=== PATIENT | female | born 1960 | race Caucasian/White ===

== ENCOUNTER → 2017-05-29 | Outpatient (CLI) | payer OTHER ==
--- NOTE | 2017-05-29 10:36 | DIAGNOSTIC IMAGING REPORT ---
Study: Fusion CT sinuses. HISTORY: Chronic sinusitis. FINDINGS: Extensive mucosal thickening and polypoid change throughout all major sinuses as well as nasal canal. Moderate mucosal thickening of the sphenoid sinuses. Considerable mucosal thickening of the right as well as left maxillary sinus with soft tissue occlusion of the ostiomeatal units bilaterally. Complete opacification of the nasal airways bilaterally presumably with extensive polypoid change. Considerable mucosal thickening of the frontal sinuses. The orbital margins are intact. No true bony destructive process. IMPRESSION: 1. Extensive mucosal thickening and polypoid change throughout all major sinuses. 2. Complete soft tissue occlusion of the ostiomeatal units bilaterally. 3. Complete/near-complete occlusion of the nasal canals bilaterally secondary to hyperplastic polypoid change 4. The orbital margins remain intact. Electronically signed by: Marito Candelaria M.D. 05/29/2017 10:35 AM Dictated Date/Time: 05/29/2017 10:31 AM
== END | disposition home or self-care (01) ==
LOC: C.CTS 10:15
DX: J32.9 Chronic sinusitis, unspecified (principal); J34.89 Other specified disorders of nose and nasal sinuses

== ENCOUNTER → 2017-06-01 | Outpatient (CLI) | payer OTHER ==
[2017-06-01 15:38] LABS: BASO % 1.2 %; BASO ABS # 0.11 K/uL (0-0.2); EOS % 15.7 %; EOS ABS # 1.46 K/uL (0-0.5); HEMATOCRIT 40.9 % (37-47); HEMOGLOBIN 14.2 g/dL (12.0-16.0); IG# 0.02 K/uL (0.00-0.02); LYMPH % 32.1 %; LYMPH ABS # 2.99 K/uL (1.2-3.4); MEAN CELL VOLUME 88.9 fL (80-100); MEAN CORPUSCULAR HEMOGLOBIN 30.9 pg (25-34); MEAN CORPUSCULAR HGB CONC 34.7 g/dl (32-36); MEAN PLATELET VOLUME 10.6 fL (7.4-10.4); MONO % 8.8 %; MONO ABS # 0.82 K/uL (0.11-0.59); NEUT ABS # 3.92 K/uL (1.4-6.5); PLATELET COUNT 292 K/uL (130-400); RED CELL DISTRIBUTION WIDTH CV 12.7 % (11.5-14.5); RED CELL DISTRIBUTION WIDTH SD 40.6 fL (36.4-46.3); WHITE BLOOD COUNT 9.32 K/uL (4.8-10.8)
[2017-06-01 15:54] LABS: PTT PATIENT 26.2 SECONDS (21.0-31.0)
[2017-06-01 16:07] LABS: POTASSIUM 3.7 mmol/L (3.5-5.1)
== END | disposition home or self-care (01) ==
LOC: C.CPL 14:09
DX: Z01.818 Encounter for other preprocedural examination (principal)

== ENCOUNTER → 2017-06-12 | Day surgery (SDC) | payer OTHER ==
[2017-06-09 11:10] VITALS: Ht 157.5 cm; Wt 90.9 kg
[~2017-06-12] VITALS: Ht 157.5 cm; Wt 90.9 kg
[~2017-06-12] MED LIST: ALUMSUS2 PO; AMOX875T PO; ATROPINE SULFATE 0.1 MG/ML 5ML SYR IV PRN; B CO1TAB7 PO; CEFAZOLIN 2000MG IV PUSH 15 ML IV SCH; CETI10TA84 PO; CITA20TA4 PO; CRS20 PO; DEXAMETHASONE SOD INJ 4 MG/ML VIAL ONE; EpHEDrine SULFATE INJ 50 MG/ML AMP IV PRN; EpINEphrine INJ 1MG/ML AMP 1 MG/ML AMP ONE; FENTANYL CITRATE INJ 50 MCG/1 ML 2 ML VIAL IV PRN; FENTANYL CITRATE INJ 50 MCG/1 ML 2 ML VIAL ONE; FLAX100024 PO; GLYCOPYRROLATE INJ 0.2 MG/ML VIAL ONE; HYDROCODONE/ACETAMIN 5/325MG TAB PO PRN; HYDROCORTISONE SOD SUCCINATE 100 MG/2 ML VIAL ONE; LACTATED RINGER'S 1000ML 1,000 ML IV SCH; LANS30CA12 PO; LIDOCAINE 4% MPF SOAK 5 ML = 1 DOSE TOP ONE; LIDOCAINE HCL 2% 2 ML VIAL (20MG/ML) ONE; LIDOCAINE/EPINEPHRINE 1% 20 ML VIAL ONE; MELATAB2 PO; MIDAZOLAM HCL 1 MG/ML 2ML VIAL ONE; NAPR1TAB9 PO; NEOSTIGMINE METHYLSULFATE 5 MG/5 ML SYR ONE; NURSING VERBAL MED ORDER ONE; ONDANSETRON INJ 2 MG/ML 2 ML VIAL IV PRN; ONDANSETRON INJ 2 MG/ML 2 ML VIAL ONE; OXYMETAZOLINE HCL 0.05% NA SPR 15 ML BTL PRN; OXYMETAZOLINE HCL 0.05% NA SPR 15 ML BTL SCH; PRED10PA3 PO; PROPOFOL IV EMULSION 10 MG/ML 20 ML VIAL IV ONE; SCOPOLAMINE 1.5 MG TDSY TD ONE; SYMIN160 INH; TRIAMCINOLONE ACET 40 MG/ML VIAL ONE; VNTHFA/IN INH
--- NOTE | 2017-06-12 09:55 | History & Physical Bridge - [place] ---
H&P Re-Evaluation Bridge Note: I have examined the patient, reviewed the History & Physical and in the interval since the performance of the History & Physical I have noted the following changes of clinical significance: No changes noted
--- NOTE | 2017-06-12 11:49 | [facility] Operative Report ---
Operative Report Operative Date Jun 12, 2017. Pre-Operative Diagnosis Chronic Sinusitis, Nasal Polyps, Allergic Rhinitis, SEPTAL DEVIATION, BILATERAL INFERIOR TURBINATE HYPERTROPHY Post-Operative Diagnosis Same Procedure(s) Performed Bilateral IMAGE-GUIDED REVISION Endoscopic Sinus Surgery, Septoplasty, Bilateral Inferior Turbinate Reduction Surgeon Dr. Storey Director Of Analytical Development Surgeon(s) None Estimated Blood Loss 100 mL Findings SEVERE R>L SINONASAL POLYPOSIS, ANTERIOR SEPTAL PERFORATION, SEVERE RIGHT SEPTAL DEVIATION, R>L INFERIOR TURBINATE HYPERTROPHY, LEFT ARIK BULLOSA Specimens A. Right Nasal Polyp Anesthesia Type General I attest to the content of the Intraoperative Record and any orders documented therein. Any exceptions are noted below.
--- NOTE | 2017-06-12 11:52 | Discharge Instructions ---
Discharge Instructions Date of Service Jun 12, 2017. Admission Reason for Admission: Nasal Polyps,Allergic Rhinitis, Chronic Sinusitis Discharge Discharge Diagnosis / Problem: SAME Discharge Goals Goal(s): Therapeutic intervention Activity Recommendations Activity Limitations: as noted below LIGHT ACTIVITY AND NO NOSE BLOWING FOR 2 WEEKS; NO DRIVING WHILE ON NORCO . Current Hospital Diet Patient's current hospital diet: Discharge Diet Recommended Diet: Regular Diet Procedures Procedures Performed: Bilateral IMAGE-GUIDED REVISION Endoscopic Sinus Surgery, Septoplasty, Bilateral Inferior Turbinate Reduction Pending Studies Studies pending at discharge: no Medical Emergencies . Who to Call and When: Medical Emergencies: If at any time you feel your situation is an emergency, please call 911 immediately. . Non-Emergent Contact Non-Emergency issues call your: Surgeon . . "Provider Documentation" section prepared by Alejo Storey. . VTE Core Measure Inpt VTE Proph given/why not?: SCD's
[2017-06-12 12:47] VITALS: BP 149/84; PULSE 52; TEMP 36.3; O2SAT 99
--- NOTE | 2017-06-12 13:28 | OPERATIVE REPORT ---
DATE OF OPERATION: 06/12/2017 PREOPERATIVE DIAGNOSES: 1. Chronic polypoid rhinosinusitis. 2. Right septal deviation. 3. Anterior septal perforation. 4. Right greater than left inferior turbinate hypertrophy. POSTOPERATIVE DIAGNOSES: 1. Chronic polypoid rhinosinusitis. 2. Right septal deviation. 3. Anterior septal perforation. 4. Right greater than left inferior turbinate hypertrophy. PROCEDURES: Mezmeriztronic fusion image guided bilateral endoscopic sinus surgery consisting of: 1. Endoscopic left beronica bullosa resection. 2. Bilateral revision maxillary antrostomies. 3. Bilateral revision complete ethmoidectomies. 4. Bilateral revision frontal sinusotomies with balloon sinuplasty assistance on the left-hand side. 5. Revision bilateral sphenoidotomies. 6. Septoplasty. 7. Revision bilateral inferior turbinate outfracture and turbinoplasty. SURGEON: Alejo Storey MD ANESTHESIA: General endotracheal. ESTIMATED BLOOD LOSS: 100 mL. FINDINGS: 1. Right greater than left sinonasal polyposis. 2. Anterior septal perforation, measuring approximately 1 cm. 3. Severe right nasal septal deviation. 4. Right greater than left inferior turbinate hypertrophy. 5. Extensive sinonasal polyposis primarily within the ethmoid and frontal sinuses. 6. Purulence within the left maxillary sinus. SPECIMENS: Right nasal polyp for further pathologic assessment. COMPLICATIONS: None. INDICATIONS FOR THE PROCEDURE: The patient is a 57-year-old female who has a history of chronic polypoid rhinosinusitis, who has undergone bilateral endoscopic sinus surgery, septoplasty, and inferior turbinate reduction by Dr. Jeffrey Pack in the [place] area. This was done in September of 2015. The patient quickly developed worsening symptomatology and complained of olfactory loss after the procedure. She has a history of allergic rhinitis and has had previous allergy testing. The patient was treated with antibiotics and steroids and a posttreatment fusion CT scan of the sinuses revealed pansinusitis, the above-mentioned septal perforation, severe right nasal septal deviation, and right greater than left inferior turbinate hypertrophy. She presents for the above-mentioned procedures on an outpatient elective basis. DESCRIPTION OF PROCEDURE: After informed consent had been obtained from the patient, the patient was wheeled to the operating room and placed on the operating table in the supine position. Monitors were placed. After induction of general endotracheal anesthesia, the patient was prepped in the usual fashion for endoscopic sinus surgery. Lidocaine and epinephrine pledgets were placed in the bilateral nasal cavities and pressure applied. After allowing adequate time for anesthesia and vasoconstriction, the left-sided pledget was removed and the patient was found to have a preexisting anterior septal perforation that measured approximately 1 cm in greatest dimension. It was noted that she had a large left middle turbinate and it appeared on the CT scan that she had a beronica bullosa, which was not resected. She had pus within the middle meatus. The left middle turbinate and lateral nasal wall were injected with 1% lidocaine with 1:100,000 epinephrine. A freer elevator was used to medialize the middle turbinate and the lidocaine and epinephrine pledget was then placed into the left middle meatus after purulence was suctioned from it. On the right hand side, there was severe right septal deviation. It appeared that there was prior resection of the right middle turbinate and there was diffuse polyposis filling the entire nasal cavity and ethmoid cavity on the right hand side. This polyposis was injected with 1% lidocaine with 1:100,000 epinephrine. Lidocaine and epinephrine pledget was then placed into the right nasal cavity/middle meatus. The left-sided pledget was removed. A sickle knife was used to incise the middle turbinate longitudinally and the lateral half of the middle turbinate was removed using straight Omar-Cut forceps and powered instrumentation and an endoscopic left beronica bullosa resection was performed. Purulence was seen emanating from the patient's previous maxillary antrostomy, which was found to be quite small. This was enlarged anteriorly, inferiorly, and posteriorly using backbiting forceps and powered instrumentation. A revision complete ethmoidectomy was then performed using powered instrumentation. The patient's previous operative note stated that she had a complete ethmoidectomy, but this is quite doubtful as it appeared as if only the ethmoid bulla was previously entered. Care was taken to exonerate all the ethmoid air cells and make it one complete cavity. There was diffuse polyposis within most of the air cells of the ethmoid sinus. Using a transnasal approach, the left sphenoid sinus ostium was identified and this was enlarged medially and inferiorly using powered instrumentation. Using a curved frontal sinus suction, the left frontal sinus was cannulated. The suction was removed and a #6 frontal sinus balloon was inserted and inflated to 12 atmospheres of pressure at 3 different locations to dilate the frontal recess tract. Powered instrumentation was then used to remove polypoid tissue that was blocking the left frontal recess. Lidocaine and epinephrine pledget was then placed into the left frontal ethmoidal recess/ethmoid cavity. The right side was then addressed. Again, there was severe septal deviation. A straight Omar-Cut forceps was used to take a specimen from the right nasal polyp, which was sent off for permanent pathological assessment. Powered instrumentation was then used to remove the remainder portion of the nasal polyposis, which was completely filling the ethmoid cavity. Once again, it appeared that there was not a total ethmoidectomy performed as the previous surgeon's operative note had stated. The right maxillary antrostomy was also small and this was enlarged anteriorly, inferiorly, and posteriorly using backbiting forceps and powered instrumentation. There was not purulence within this sinus as there was on the left hand side; however, there was mild to moderate mucosal thickening involving the right maxillary sinus. A right sphenoidotomy was then performed in a similar fashion as described on the left hand side. It was very difficult to cannulate the right frontal sinus due to the severe septal deviation and there was almost an adhesion between the superior aspect of the nasal septum and lateral nasal wall, which may explain the patient's olfactory loss. There was also polypoid tissue in this area. The decision was made to perform a revision septoplasty even though the patient had an anterior septal perforation. The nasal septum was then injected with 1% lidocaine with 1:100,000 epinephrine. Lidocaine and epinephrine pledgets were placed in the bilateral nasal cavities and pressure applied. A #15 scalpel was then used to make an incision posterior to the posterior edge of the anterior septal perforation and a caudal elevator was used to elevate the mucoperichondrial mucoperiosteal flap overlying the septum. There was enough residual septal bone and cartilage dorsally that the patient's nasal dorsum would have enough support. However, there was severe deviation involving septal bone and Earnest forceps was used to remove this deviated bone in order the septum to be more straight. It was difficult to get the septum in the complete midline due to the fact that the 1-cm dorsal strut was severely deviated to the right and this had to be left undisturbed, so that the patient would have adequate nasal support. The septal cavity was suctioned. The septal incision was closed with a 4-0 plain gut suture on a Ted needle in a quilting stitch fashion. The mucoperichondrial and mucoperiosteal flaps were reopposed using this method in order to prevent septal hematoma. The 0 degree endoscope was then inserted into the right nasal cavity again and this allowed for better visualization of the superior nasal vault and there was more polypoid tissue that was removed using powered instrumentation. Now, the curved frontal sinus suction could be inserted into the right frontal sinus and powered instrumentation was used to remove polypoid tissue blocking the right frontal recess tract. A Schneider elevator was then used to infracture and subsequently outfracture the inferior turbinates bilaterally. The inferior turbinates were injected with 1% lidocaine with 1:100,000 epinephrine. A 2.0-mm turbinate blade using powered instrumentation was then used to perform bilateral inferior turbinoplasties in the submucosal fashion. The sinonasal cavities and nasopharynx were suctioned. Stammberger nasal dressing mixed 1:1 with Kenalog 40 mg per mL was then instilled into the bilateral frontal ethmoidal recesses and ethmoid cavities. An orogastric tube was placed and the stomach was suctioned free of air and stomach contents. This marked the end of the case. The patient tolerated the procedure well. There were no apparent complications. The patient was extubated and transferred to recovery room in stable condition. I attest to the content of the Intraoperative Record and any orders documented therein. Any exception s are noted below.
--- NOTE | 2017-06-12 13:28 | Anesthesia Progress Nt - [facility] ---
Anesthesia Post Op Note Date & Time Jun 12, 2017 at 13:27 Vital Signs Pain Intensity: 1 Vital Signs Past 12 Hours Date Time Temp Pulse Resp B/P (MAP) Pulse Ox O2 Delivery O2 Flow Rate FiO2 06/12/17 12:47 36.3 52 16 149/84 (105) 99 Room Air 06/12/17 12:43 37.1 51 16 160/70 97 Room Air 06/12/17 12:37 56 14 99 06/12/17 12:37 56 14 06/12/17 12:36 151/83 06/12/17 12:34 155/88 06/12/17 12:32 61 12 100 06/12/17 12:32 60 12 06/12/17 12:30 176/96 06/12/17 12:27 52 15 06/12/17 12:27 52 15 100 06/12/17 12:26 163/88 06/12/17 12:22 50 8 100 06/12/17 12:22 50 8 06/12/17 12:21 172/88 06/12/17 12:17 51 7 06/12/17 12:17 52 7 100 06/12/17 12:16 171/93 06/12/17 12:12 57 14 100 06/12/17 12:12 57 14 06/12/17 12:11 168/86 06/12/17 12:08 54 10 06/12/17 12:08 54 10 100 06/12/17 12:05 171/88 06/12/17 12:03 57 10 06/12/17 12:03 57 10 100 06/12/17 12:02 59 12 06/12/17 12:02 59 12 100 06/12/17 12:01 155/86 06/12/17 12:00 56 11 06/12/17 12:00 56 11 100 06/12/17 11:56 161/86 06/12/17 11:55 36.1 67 14 161/86 100 Mask 8 06/12/17 09:20 36.6 79 16 141/88 (105) 97 Room Air Notes Mental Status: alert / awake / arousable, participated in evaluation Pt Amnestic to Procedure: Yes Nausea / Vomiting: adequately controlled Pain: adequately controlled Airway Patency, RR, SpO2: stable & adequate BP & HR: stable & adequate Hydration State: stable & adequate Anesthetic Complications: no major complications apparent
== END | disposition home or self-care (01) ==
LOC: X.SURG 09:06
DX: J32.9 Chronic sinusitis, unspecified (principal); J33.9 Nasal polyp, unspecified; J34.2 Deviated nasal septum; J34.89 Other specified disorders of nose and nasal sinuses; J34.3 Hypertrophy of nasal turbinates; J30.9 Allergic rhinitis, unspecified; K21.9 Gastro-esophageal reflux disease without esophagitis; J44.9 Chronic obstructive pulmonary disease, unspecified; E78.00 Pure hypercholesterolemia, unspecified; Z87.09 Personal history of other diseases of the respiratory system; Z98.890 Other specified postprocedural states; Z98.818 Other dental procedure status; Z79.899 Other long term (current) drug therapy; Z82.49 Family history of ischemic heart disease and other diseases of the circulatory system; Z83.6 Family history of other diseases of the respiratory system; Z84.89 Family history of other specified conditions; Z80.9 Family history of malignant neoplasm, unspecified; Z82.3 Family history of stroke